=== PATIENT | male | born 1950 | race Asian ===

== ENCOUNTER 2019-07-03 13:50 | Inpatient (IN) | payer OTHER, MEDICARE ==
[~2019-07-03] VITALS: Ht 170.2 cm; Wt 73.5 kg
[~2019-07-03 13:50] MED LIST: CEFAZOLIN 1 GM IVPB PREMIX 50 ML IV ONE
[2019-07-03] MEDS ORDERED: NACL 0.9% 1,000 ML IV ONE (13:54)
[2019-07-03 13:57] VITALS: BP_SYST 152
--- NOTE | 2019-07-03 13:57 | NUR ---
Patient to ER bed 2 to gown for evaluation. Side rails up.
[2019-07-03] MEDS ORDERED: ONDANSETRON HCL 4 MG/2 ML VIAL IVP ONE (14:00)
[2019-07-03] MEDS ORDERED: NS 1000 ML IV.SOLN IV ONE (14:00)
--- NOTE | 2019-07-03 14:05 | NUR ---
ER at bedside examining patient.
--- NOTE | 2019-07-03 14:05 | NUR ---
PT CAME TO ER AFTER NOT HAVING BOWEL MOVEMENT FOR 7 DAYS AND ABDOMINAL PAIN INTERMITTENT. PT RESTING IN BED AO4, NO DISTRESS AT THIS TIME.
[2019-07-03] MEDS ORDERED: NACL 0.9% 2,000 ML IV ONE (14:15)
--- NOTE | 2019-07-03 14:20 | NUR ---
ER at bedside examining patient.
[2019-07-03 14:47] LABS: BASOPHILS % (AUTO) 0.5 % (0.0-2.0); EOSINOPHILS % (AUTO) 0.8 % (0.0-4.0); HEMOGLOBIN 12.1 g/dL (14.0-18.0); LYMPHOCYTES # (AUTO) 1.7 K/uL (1.0-5.5); LYMPHOCYTES % (AUTO) 29.1 % (20.5-51.5); MEAN CORPUSCULAR HEMOGLOBIN 27 pg (27-31); MEAN CORPUSCULAR HGB CONC 32 % (32-36); MEAN CORPUSCULAR VOLUME 84 fL (79.0-98.0); MONOCYTES # (AUTO) 0.6 K/uL (0.0-1.0); MONOCYTES % (AUTO) 10.3 % (1.7-9.3); NEUTROPHILS # (AUTO) 3.5 K/uL (1.8-7.7); NEUTROPHILS % (AUTO) 59.3 % (40.0-70.0); PLATELET COUNT (AUTO) 440 K/uL (130-430); RED BLOOD CELL COUNT(AUTO) 4.51 MIL/uL (4.2-6.2); RED CELL DISTRIBUTION WIDTH 13.7 % (9.0-15.0)
[2019-07-03 14:51] LABS: CALCIUM 8.4 mg/dL (8.4-11.0); CREATININE 0.91 mg/dL (0.55-1.30); POTASSIUM 3.9 mmol/L (3.5-5.1)
[2019-07-03 14:53] LABS: INR 0.9 (0.80-1.20); PROTHROMBIN TIME 9.3 SECS (9.5-12.5)
[2019-07-03 15:06] LABS: ALBUMIN 3.6 g/dL (3.4-4.8); FREE T4 (FREE THYROXINE) 1.2 ng/dl (0.8-1.5); THYROID STIMULATING HORMONE 1.44 uIu/mL (0.36-3.74); TOTAL BILIRUBIN 0.3 mg/dL (0.0-1.0)
--- NOTE | 2019-07-03 15:56 | NUR ---
Orders received from Dr. France, entered by RN. Called for bed assignment, spoke with JOSÉ MIGUEL Viveros.
--- NOTE | 2019-07-03 15:58 | NUR ---
Patient will be admitted to care of DR CARTER. Admitted to MED SURG unit. Will go to room 130B. Belongings list completed. Complete and up to date summary report printed. SBAR report to be given at bedside with opportunity for questions.
--- NOTE | 2019-07-03 16:00 | NUR ---
UNABLE TO COMPLETE MED REC AT THIS TIME
[2019-07-03 16:20] VITALS: BP_SYST 161
--- NOTE | 2019-07-03 16:21 | NUR ---
Admission Note Received patient from ER with diagnosis of Acute Ileus. Initial Plan of Care discussed-patient verbalized understanding. Family at bedside. Oriented to room, call light, pain management and safety.
[2019-07-03 16:54] VITALS: BP_SYST 161
[2019-07-03] MEDS: KCL 20 mEq in D5/0.45NS 1000mL 1,000 ML IV SCH (18:19)
[2019-07-03 20:00] VITALS: BP_SYST 147
[2019-07-03] MEDS: METOPROLOL TARTRATE 25 MG TABLET PO SCH (23:04)
[2019-07-03] MEDS: metroNIDAZOLE 500 mg/NS 100 ML IV SCH (23:15)
[2019-07-03] MEDS ORDERED: metroNIDAZOLE 500 mg/NS 100 ML IV ONE (23:25)
--- NOTE | 2019-07-04 00:32 | NUR ---
CONSULTATION PAGED/CALLED Reason for Consultation: ACUTE ILIUS Person Who was Notified: SIMON Consulting Physician: Spot Man Specialty: Ordering Physician:
[2019-07-04 04:00] VITALS: BP_SYST 143
[2019-07-04] MEDS: KCL 20 mEq in D5/0.45NS 1000mL 1,000 ML IV SCH (05:27)
--- NOTE | 2019-07-04 05:53 | NUR ---
Patient in bed. no complaint of pain or discomfort. Will continue to monitor.
[2019-07-04] MEDS: metroNIDAZOLE 500 mg/NS 100 ML IV SCH ×2 (06:11→14:14)
[2019-07-04] MEDS ORDERED: metroNIDAZOLE 500 mg/NS 100 ML IV ONE (06:14)
[2019-07-04 07:07] LABS: BASOPHILS % (AUTO) 0.5 % (0.0-2.0); HEMATOCRIT 33.8 % (36-54); HEMOGLOBIN 10.9 g/dL (14.0-18.0); LYMPHOCYTES # (AUTO) 1.3 K/uL (1.0-5.5); LYMPHOCYTES % (AUTO) 26.8 % (20.5-51.5); MEAN CORPUSCULAR HEMOGLOBIN 27 pg (27-31); MEAN CORPUSCULAR HGB CONC 32 % (32-36); MEAN CORPUSCULAR VOLUME 84 fL (79.0-98.0); MONOCYTES # (AUTO) 0.6 K/uL (0.0-1.0); MONOCYTES % (AUTO) 12.7 % (1.7-9.3); NEUTROPHILS # (AUTO) 2.8 K/uL (1.8-7.7); PLATELET COUNT (AUTO) 368 K/uL (130-430); RED BLOOD CELL COUNT(AUTO) 4.04 MIL/uL (4.2-6.2); RED CELL DISTRIBUTION WIDTH 13.9 % (9.0-15.0); WHITE BLOOD COUNT (AUTO) 4.8 K/uL (4.8-10.8)
--- NOTE | 2019-07-04 07:15 | NUR ---
Received report and patient. In no acute distress. Sleeping. Denies pain. Side rails x 3 up, call light with in reach. Breathing even and unlabored.
[2019-07-04 07:20] LABS: CALCIUM 7.9 mg/dL (8.4-11.0); CREATININE 0.82 mg/dL (0.55-1.30); POTASSIUM 3.9 mmol/L (3.5-5.1)
--- NOTE | 2019-07-04 07:45 | NUR ---
Made MD France aware regarding today's morning troponin at 0.141, no new orders.
[2019-07-04 08:00] VITALS: BP_SYST 131
[2019-07-04] MEDS: ASPIRIN 81 MG TAB.CHEW PO SCH (08:52)
[2019-07-04] MEDS: METOPROLOL TARTRATE 25 MG TABLET PO SCH (08:53)
[2019-07-04] MEDS: ENOXAPARIN SODIUM 40 MG/0.4 ML SYRINGE SUBCUT SCH (08:55)
[2019-07-04 12:54] VITALS: BP_SYST 143
[2019-07-04] MEDS ORDERED: GASTROGRAFIN 120 ML ONE (14:48)
--- NOTE | 2019-07-04 15:30 | NUR ---
Patient left for radiology procedure via wheel chair.
[2019-07-04 16:45] VITALS: BP_SYST 135
--- NOTE | 2019-07-04 17:13 | NUR ---
Patient arrived back from radiology at 1710, tolerated procedure well.
[2019-07-04 20:10] VITALS: BP_SYST 137
[2019-07-05 00:03] VITALS: BP_SYST 124
[2019-07-05] MEDS: metroNIDAZOLE 500 mg/NS 100 ML IV SCH ×3 (00:48→20:25)
[2019-07-05] MEDS: METOPROLOL TARTRATE 25 MG TABLET PO SCH ×3 (00:50→20:24)
[2019-07-05] MEDS: KCL 20 mEq in D5/0.45NS 1000mL 1,000 ML IV SCH ×2 (00:54→08:00)
[2019-07-05] MEDS: ENOXAPARIN SODIUM 40 MG/0.4 ML SYRINGE SUBCUT SCH (09:00)
[2019-07-05] MEDS: ASPIRIN 81 MG TAB.CHEW PO SCH (09:00)
[2019-07-05 11:05] LABS: POTASSIUM 3.7 mmol/L (3.5-5.1)
[2019-07-05 11:06] LABS: CALCIUM 8.2 mg/dL (8.4-11.0); CREATININE 0.95 mg/dL (0.55-1.30)
[2019-07-05 11:14] LABS: RED BLOOD CELL COUNT(AUTO) 4.14 MIL/uL (4.2-6.2); WHITE BLOOD COUNT (AUTO) 5.9 K/uL (4.8-10.8)
[2019-07-05 11:15] LABS: BASOPHILS % (AUTO) 0.5 % (0.0-2.0); EOSINOPHILS # (AUTO) 0.1 K/uL (0.0-0.4); EOSINOPHILS % (AUTO) 1.1 % (0.0-4.0); HEMOGLOBIN 11.2 g/dL (14.0-18.0); LYMPHOCYTES # (AUTO) 1.3 K/uL (1.0-5.5); LYMPHOCYTES % (AUTO) 21.5 % (20.5-51.5); MEAN CORPUSCULAR HEMOGLOBIN 27 pg (27-31); MEAN CORPUSCULAR HGB CONC 32 % (32-36); MEAN CORPUSCULAR VOLUME 85 fL (79.0-98.0); MONOCYTES # (AUTO) 0.6 K/uL (0.0-1.0); MONOCYTES % (AUTO) 10.9 % (1.7-9.3); NEUTROPHILS # (AUTO) 3.9 K/uL (1.8-7.7); PLATELET COUNT (AUTO) 394 K/uL (130-430); RED CELL DISTRIBUTION WIDTH 13.8 % (9.0-15.0)
--- NOTE | 2019-07-05 12:06 | NUR ---
PAGED PAGED SADIA GILLILAND AT [phone] SPOKE WITH RADHA.
[2019-07-05 12:25] VITALS: BP_SYST 130
[2019-07-05 16:34] VITALS: BP_SYST 136
[2019-07-05] MEDS ORDERED: BISACODYL 5 MG TABLET.DR (DULCOLAX) PO ONE (17:00)
[2019-07-05] MEDS ORDERED: GOLYTELY / COLYTE SOLUTION 4 LITERS PO ONE (18:00)
[2019-07-05 20:00] VITALS: BP_SYST 121
--- NOTE | 2019-07-05 20:00 | NUR ---
recieved report @ start of shift,a/o/x/4, respirations even and unlabored, room air,abulates freely about room with steady gait,tolerated clear liquid diet well, consumed golytly for colonoscopy in am, tolerated well, D5 1/2NS +20meg K+ infusing @ 75 ml/hr in right wrist #24G, denies pain @ this time, SR'S up X'S 2, call light within reach, bed in low position, tolerated IVPB Flagyl with no adverse reactions noted, will continue to monitor for s/s of distress.
--- NOTE | 2019-07-06 | NUR ---
resting quietly in bed with eyes closed, easily aroused, denies pain, NPO for colonoscopy, in no acute distress, will continue to monitor for s/s of distress.
[2019-07-06 00:18] VITALS: BP_SYST 151
[2019-07-06] MEDS: KCL 20 mEq in D5/0.45NS 1000mL 1,000 ML IV SCH ×2 (01:27→14:06)
--- NOTE | 2019-07-06 04:00 | NUR ---
remains npo for colonoscopy this am, consent to be signed, patient up and down going to restroom, cooperative and in good spirits, will continue to monitor.
[2019-07-06 04:01] VITALS: BP_SYST 128
[2019-07-06] MEDS: metroNIDAZOLE 500 mg/NS 100 ML IV SCH ×3 (05:34→21:32)
--- NOTE | 2019-07-06 06:18 | NUR ---
consent signed and witnessed for colonoscopy today
[2019-07-06 06:30] LABS: INR 1.1 (0.80-1.20); PROTHROMBIN TIME 10.7 SECS (9.5-12.5)
--- NOTE | 2019-07-06 07:33 | NUR ---
INITIAL NOTE PT RESTING IN BED, NO ACUTE DISTRESS NOTED, BREATHING EVEN AND UNLABORED. IVF INFUSING WELL. PT NPO SINCE MIDNIGHT. CALL LIGHT WITHIN REACH, BED IN LOW AND LOCKED POSITION. PT EDUCATED ON SAFETY AND PURPOSE OF BED ALARM. PT VERBALIZED UNDERSTANDING. PT REFUSING BED ALARM AT THIS TIME.
[2019-07-06 08:00] VITALS: BP_SYST 134
[2019-07-06] MEDS: ENOXAPARIN SODIUM 40 MG/0.4 ML SYRINGE SUBCUT SCH (08:35)
[2019-07-06] MEDS: ASPIRIN 81 MG TAB.CHEW PO SCH (08:35)
[2019-07-06] MEDS: METOPROLOL TARTRATE 25 MG TABLET PO SCH ×2 (08:36→21:00)
--- NOTE | 2019-07-06 09:33 | NUR ---
RN ROUNDS PT RESTING IN BED, NO ACUTE DISTRESS NOTED, BREATHING EVEN AND UNLABORED.
--- NOTE | 2019-07-06 11:33 | NUR ---
RN ROUNDS PT AWAKE, SPEAKING WITH FAMILY AT BEDSIDE. DENIES ANY PAIN OR DISCOMFORT, WILL CONTINUE TO MONITOR.
[2019-07-06] MEDS ORDERED: SIMETHICONE 40 MG/0.6 ML ML ONE (11:41)
[2019-07-06] MEDS ORDERED: MIDAZOLAM HCL 5 MG/5 ML VIAL ONE (11:41)
[2019-07-06 12:00] VITALS: BP_SYST 138
[2019-07-06] MEDS: fentaNYL CITRATE/PF 100 MCG/2 ML AMP ONE ×2 (12:12→12:15)
[2019-07-06] MEDS: MIDAZOLAM HCL 5 MG/5 ML VIAL ONE ×2 (12:12→12:15)
--- NOTE | 2019-07-06 13:30 | NUR ---
LEFT FOR COLONOSCOPY PT DENIES ANY PAIN OR DISCOMFORT. ESCORTED BY GI NURSES.
--- NOTE | 2019-07-06 15:06 | NUR ---
DC Planning: Per dr. France, planning to dc pt home if colonoscopy is negative. Addendum: 07/06/19 at 1508 by Gregorio Velez RN >> The pt will have surgical consultation dt colon mass.
--- NOTE | 2019-07-06 15:30 | NUR ---
RN ROUNDS PT TOLERATED CLEAR LIQUID DIET WELL. PT DENIES ANY PAIN OR DISCOMFORT. WILL CONTINUE TO MONITOR.
[2019-07-06 16:00] VITALS: BP_SYST 144
--- NOTE | 2019-07-06 16:21 | NUR ---
CONSULTATION: REASON FOR CONSULT: COLON MASS CONSULTING PHYSICIAN: ALAN ESTRADA MD ORDERED BY:ELENA SPOKE WITH NAOMY [phone]
--- NOTE | 2019-07-06 17:30 | NUR ---
DR. NATALIE MARTINES AT BEDSIDE SPEAKING WITH PATIENT AND EXAMINING AT BEDSIDE.
--- NOTE | 2019-07-06 18:33 | NUR ---
CLOSING NOTE PT AWAKE, SPEAKING ON PERSONAL CELL PHONE. NO ACUTE DISTRESS NOTED. IVF INFUSING WELL. CALL LIGHT WITHIN REACH, BED IN LOW AND LOCKED POSITION. EDUCATED PT ON USE AND SAFETY OF BED ALARM, PT VERBALIZED UNDERSTANDING. PT REFUSING BED ALARM. ALL NEEDS MET AT THIS TIME. WILL CONTINUE TO MONITOR UNTIL PT CARE IS ENDORSED TO PROOF OPERATOR RN.
--- NOTE | 2019-07-06 19:47 | NUR ---
Initial note: Received report from isaac RN. Patient is awake, sitting in chair at bedside. No acute distress. Tolerating room air. IV site to is patent and benign, IV fluids infusing well. Call light is with patient. Safety and fall precautions in place. Will continue with plan of care.
[2019-07-06 20:00] VITALS: BP_SYST 144
--- NOTE | 2019-07-06 21:31 | NUR ---
Ambulating: Patient seen ambulating in hallway independently with steady gait. Tolerating room air well. IV site patent and benign. Safety, fall precautions in place. Will continue monitoring.
--- NOTE | 2019-07-07 00:22 | NUR ---
Rounds: Patient is sleeping. No acute distress. Tolerating room air. Even and unlabored breathing. IV fluids infusing well. Call light with patient. Will continue to monitor.
[2019-07-07 00:30] VITALS: BP_SYST 132
--- NOTE | 2019-07-07 01:50 | NUR ---
NOTE PATIENT IS SLEEPING, STABLE, NO SIGNS OF RESPIRATORY DISTRESS. CALL LIGHT IS WITHIN REACH. BED AND THE LOWEST LEVEL. Addendum: 07/08/19 at 0342 by Ashley Galvez RN NOTE INTENDED FOR DIFFERENT TIME.
--- NOTE | 2019-07-07 03:13 | NUR ---
Rounds: Patient is resting in bed comfortably. No acute distress. Even and unlabored breathing on room air. IV site patent and benign, IV fluids infusing well. Call light is with patient. Will continue to monitor.
[2019-07-07] MEDS: KCL 20 mEq in D5/0.45NS 1000mL 1,000 ML IV SCH ×2 (05:00→17:57)
[2019-07-07] MEDS: metroNIDAZOLE 500 mg/NS 100 ML IV SCH ×3 (05:00→22:34)
--- NOTE | 2019-07-07 05:07 | NUR ---
Rounds: Patient is sleeping in bed, no acute distress. Even, unlabored respirations on room air. Call light with patient. Will continue to monitor.
--- NOTE | 2019-07-07 06:47 | NUR ---
Closing note: Patient is sleeping in bed, no acute distress. Tolerating room air. IV fluids infusing well, no infiltration at IV site. All needs met. Safety, fall precautions observed. Hourly rounding performed throughout shift. Will endorse care to dayshift RN.
--- NOTE | 2019-07-07 07:30 | NUR ---
INITIAL NOTE PT AWAKE, SITTING UP IN BED. PT DENIES ANY PAIN OR DISCOMFORT. IVF INFUSING WELL. CALL LIGHT WITHIN REACH, BED IN LOW AND LOCKED POSITION. EDUCATED PT ON SAFETY AND USE OF BED ALARM, PT VERBALIZED UNDERSTANDING. PT REFUSING BED ALARM AT THIS TIME.
[2019-07-07 08:00] VITALS: BP_SYST 146
[2019-07-07] MEDS: ASPIRIN 81 MG TAB.CHEW PO SCH (09:01)
[2019-07-07] MEDS: METOPROLOL TARTRATE 25 MG TABLET PO SCH ×2 (09:01→20:29)
[2019-07-07] MEDS: ENOXAPARIN SODIUM 40 MG/0.4 ML SYRINGE SUBCUT SCH (09:06)
--- NOTE | 2019-07-07 09:30 | NUR ---
RN ROUNDS PT SITTING UP IN BED, AT BEDSIDE. PT DENIES ANY PAIN OR DISCOMFORT AT THIS TIME.
--- NOTE | 2019-07-07 11:30 | NUR ---
RN ROUNDS PT SITTING IN BEDSIDE CHAIR, PT USING PERSONAL LAPTOP. NO CHANGE IN ASSESSMENT. VSS. WILL CONTINUE TO MONITOR.
[2019-07-07 12:00] VITALS: BP_SYST 131
--- NOTE | 2019-07-07 13:30 | NUR ---
RN ROUNDS PT SITTING IN BEDSIDE CHAIR. NO CHANGE IN ASSESSMENT.
--- NOTE | 2019-07-07 15:22 | NUR ---
DR. NATALIE MARTINES EXAMINING PT AT BEDSIDE. MD TO SWITCH DIET TO CLEAR LIQUIDS, KEEP PT NPO AFTER 6AM TOMORROW. POSSIBLE SURGERY TO BE SCHEDULED AT 1PM. VERIFIED WITH READ BACK.
--- NOTE | 2019-07-07 15:45 | NUR ---
CONSENT SIGNED ADMINISTERED SCHEDULED MEDICATIONS. CONSENT SIGNED FOR SURGERY TOMORROW. EDUCATED PT ON CHG BATH. PT VERBALIZED UNDERSTANDING. LEFT CHB WIPES AT BEDSIDE WITH FRESH GOWN. EDUCATED PT ON DRINKING SALINE LAXATIVE. PT VERBALIZED UNDERSTANDING.
[2019-07-07 16:00] VITALS: BP_SYST 130
[2019-07-07] MEDS: metroNIDAZOLE 500 MG TABLET PO SCH ×3 (17:57→22:34)
[2019-07-07] MEDS: NEOMYCIN SULFATE 500 MG TABLET PO SCH ×3 (17:58→22:35)
[2019-07-07] MEDS ORDERED: MAGNESIUM CITRATE 300 ML ORAL SOLUTION PO ONE (18:00)
--- NOTE | 2019-07-07 18:48 | NUR ---
CLOSING NOTE PT SITTING UP IN BED EATING DINNER. PT AWARE THAT HE WILL BE NPO TOMORROW AFTER 6AM. AT BEDSIDE. IVF INFUSING WELL. CALL LIGHT WITHIN REACH, BED IN LOW AND LOCKED POSITION. EDUCATED PT ON SAFETY AND USE OF BED ALARM, PT VERBALIZED UNDERSTANDING. PT REFUSING BED ALARM AT THIS TIME. ALL NEEDS MET THROUGHOUT SHIFT. WILL CONTINUE TO MONITOR UNTIL PT CARE IS ENDORSED TO FAMILY AND MARRIAGE COUNSELLOR RN.
[2019-07-07 19:45] VITALS: BP_SYST 144
--- NOTE | 2019-07-07 19:50 | NUR ---
INITIAL NOTE AT INITIAL ASSESSMENT, PATIENT IS RESTING IN BED, STABLE, NO SIGNS OF RESPIRATORY DISTRESS. PATIENT VERBALIZES NO PAIN AT THIS TIME. PLAN OF CARE FOR THE EVENING IS COMMUNICATED WITH THE PATIENT. PATIENT SUCCESSFULLY DEMONSTRATES CORRECT USAGE OF CALL LIGHT AT THIS TIME. BED IS LOCKED, AND AT THE LOWEST LEVEL. PATIENT IS REFUSING BED ALARM AT THIS TIME DESPITE EDUCATIONAL EFFORTS. FALL AND SAFETY PRECAUTIONS WILL BE IN PLACE THROUGHOUT THE SHIFT.
--- NOTE | 2019-07-07 21:30 | NUR ---
DR. CARTER ROUNDS DR. CARTER IS A BEDSIDE AT THIS TIME TALKING TO THE PATIENT
--- NOTE | 2019-07-07 21:50 | NUR ---
NOTE SCHEDULED MEDICATIONS ARE GIVEN AT THIS TIME. PATIENT IS RESTING IN BED, STABLE, NO SIGNS OF RESPIRATORY DISTRESS. CALL LIGHT WITHIN REACH. BED IS LOCKED AND AT THE LOWEST LEVEL. Addendum: 07/08/19 at 0340 by Ashley Galvez RN PATIENT HAS FINISHED MAG CITRATE, PATIENT TOLERATED WELL.
--- NOTE | 2019-07-07 23:50 | NUR ---
NOTE PATIENT IS SLEEPING, STABLE, NO SIGNS OF RESPIRATORY DISTRESS. CALL LIGHT IS WITHIN REACH. BED AND THE LOWEST LEVEL.
[2019-07-08] VITALS: BP_SYST 126
--- NOTE | 2019-07-08 | NUR ---
CHG BATH CHG BATH GIVEN AT THIS TIME PER MD REQUEST
--- NOTE | 2019-07-08 01:50 | NUR ---
NOTE PATIENT IS SLEEPING, STABLE, NO SIGNS OF RESPIRATORY DISTRESS. CALL LIGHT IS WITHIN REACH. BED AND THE LOWEST LEVEL.
--- NOTE | 2019-07-08 03:40 | NUR ---
NOTE PATIENT IS SLEEPING, STABLE, NO SIGNS OF RESPIRATORY DISTRESS. CALL LIGHT IS WITHIN REACH. BED AND THE LOWEST LEVEL.
--- NOTE | 2019-07-08 05:40 | NUR ---
NOTE PATIENT IS RESTING IN BED, STABLE, NO SIGNS OF RESPIRATORY DISTRESS. CALL LIGHT IS WITHIN REACH. BED AND THE LOWEST LEVEL.
[2019-07-08] MEDS: metroNIDAZOLE 500 mg/NS 100 ML IV SCH ×3 (05:56→23:28)
[2019-07-08] MEDS: KCL 20 mEq in D5/0.45NS 1000mL 1,000 ML IV SCH ×2 (05:57→19:30)
--- NOTE | 2019-07-08 06:30 | NUR ---
CLOSING NOTE PATIENT HAD NO COMPLAINTS OF ABDOMINAL PAIN THROUGHOUT THE NIGHT. HE IS READY AND VERBALIZES UNDERSTANDING OF HIS AM PROCEDURE SCHEDULED. HE IS STABLE, RESTING IN BED, CALL LIGHT IS WITHIN REACH. BED IS LOCKED, ALARMED, AND AT THE LOWEST LEVEL. FALL, AND SAFETY PRECAUTIONS HAVE BEEN IN PLACE THROUGHOUT THE SHIFT. WILL CONTINUE TO MONITOR UNTIL SHIFT REPORT IS GIVEN AT BEDSIDE TO AM NURSE.
[2019-07-08 06:52] LABS: BASOPHILS % (AUTO) 0.5 % (0.0-2.0); EOSINOPHILS % (AUTO) 0.8 % (0.0-4.0); HEMATOCRIT 32.7 % (36-54); HEMOGLOBIN 10.5 g/dL (14.0-18.0); LYMPHOCYTES # (AUTO) 1.8 K/uL (1.0-5.5); LYMPHOCYTES % (AUTO) 29.3 % (20.5-51.5); MEAN CORPUSCULAR HEMOGLOBIN 27 pg (27-31); MEAN CORPUSCULAR HGB CONC 32 % (32-36); MEAN CORPUSCULAR VOLUME 84 fL (79.0-98.0); MONOCYTES # (AUTO) 0.8 K/uL (0.0-1.0); MONOCYTES % (AUTO) 12.8 % (1.7-9.3); NEUTROPHILS # (AUTO) 3.5 K/uL (1.8-7.7); NEUTROPHILS % (AUTO) 56.6 % (40.0-70.0); PLATELET COUNT (AUTO) 351 K/uL (130-430); RED BLOOD CELL COUNT(AUTO) 3.91 MIL/uL (4.2-6.2); RED CELL DISTRIBUTION WIDTH 13.9 % (9.0-15.0); WHITE BLOOD COUNT (AUTO) 6.2 K/uL (4.8-10.8)
[2019-07-08 07:15] LABS: CALCIUM 7.9 mg/dL (8.4-11.0); CREATININE 0.85 mg/dL (0.55-1.30); POTASSIUM 4.1 mmol/L (3.5-5.1)
--- NOTE | 2019-07-08 07:36 | NUR ---
ATTENDING MD DR CARTER WAS PAGED DIRECTLY, RE: CRITICAL TROP LEVEL.
--- NOTE | 2019-07-08 07:40 | NUR ---
OPENING NOTES: RECEIVED PATIENT FROM GOLF BALL WINDER NURSE. PATIENT IS AWAKE AND ALERT x4 LAYING DOWN IN BED. NO SIGNS OF DISTRESS OR SHORTNESS OF BREATH NOTED. IV SITE IS PATENT WITH NO SIGNS OF INFILTRATION NOTED. PATIENT IS TOLERATING OXYGEN AT ROOM AIR. PATIENT IN STABLE CONDITION. SAFETY, FALL AND ASPIRATION PRECAUTIONS ARE IN PLACE. BED LOCKED IN LOWEST POSITION WITH CALL LIGHT IN REACH. WILL CONTINUE TO MONITOR PATIENT FOR ANY CHANGES.
[2019-07-08] MEDS: ENOXAPARIN SODIUM 40 MG/0.4 ML SYRINGE SUBCUT SCH (07:54)
--- NOTE | 2019-07-08 07:54 | NUR ---
Spoke to Dr. ESTRADA /surgeon hold dose of Lovenox today for surgery.
[2019-07-08 08:17] VITALS: BP_SYST 132
[2019-07-08] MEDS: ASPIRIN 81 MG TAB.CHEW PO SCH (08:21)
[2019-07-08] MEDS: METOPROLOL TARTRATE 25 MG TABLET PO SCH ×2 (08:22→23:11)
[2019-07-08 09:09] LABS: BILIRUBIN,URINE NEGATIVE (NEGATIVE); BLOOD, URINE NEGATIVE (NEGATIVE); CLARITY/URINE CLEAR (CLEAR); COLOR,URINE YELLOW (YELLOW); GLUCOSE,URINE NEGATIVE (NEGATIVE); KETONES,URINE NEGATIVE (NEGATIVE); LEUKOCYTE ESTERASE ,URINE TRACE (NEGATIVE); NITRITE, URINE POSITIVE (NEGATIVE); PH,URINE 5.5 (5.0-8.0); PROTEIN URINE NEGATIVE (NEGATIVE); UROBILINOGEN,URINE 0.2 (0.2-1.0)
[2019-07-08 09:14] LABS: BACTERIA,URINE FEW /HPF (None Seen); RBC,URINE 0-3 /HPF (0-3); WBC,URINE 0-3 /HPF (0-3)
--- NOTE | 2019-07-08 10:15 | NUR ---
RN ROUNDS: PATIENT IS AWAKE AND ALERT x4 SITTING IN A CHAIR AT BEDSIDE. NO SIGNS OF DISTRESS OR SHORTNESS OF BREATH NOTED. PATIENT DENIES ANY PAIN AT THE MOMENT. PATIENT IN STABLE CONDITION. WILL CONTINUE TO MONITOR PATIENT FOR ANY CHANGES.
[2019-07-08 11:35] VITALS: BP_SYST 123
--- NOTE | 2019-07-08 12:09 | NUR ---
RN ROUNDS: PATIENT IS AWAKE AND ALERT x4 LAYING DOWN IN BED. NO SIGNS OF DISTRESS OR SHORTNESS OF BREATH NOTED. PATIENT IN STABLE CONDITION. WILL CONTINUE TO MONITOR PATIENT FOR ANY CHANGES.
--- NOTE | 2019-07-08 14:25 | NUR ---
RN ROUNDS: PATIENT IS IN SURGERY. WILL AWAIT PATIENT'S RETURN TO THE FLOOR.
[2019-07-08] MEDS ORDERED: BUPIVACAINE LIPOSOME/PF 266 MG/20 ML VIAL INFIL ONE (14:29)
[2019-07-08] MEDS ORDERED: LR 1,000 ML IV SCH (15:43)
[2019-07-08] MEDS ORDERED: HYDROmorphone 1 MG INJ. 1 MG/ML AMPUL IVP PRN ×2 (15:45)
[2019-07-08] MEDS ORDERED: METOCLOPRAMIDE HCL 10 MG/2 ML VIAL IVP PRN (15:45)
[2019-07-08] MEDS ORDERED: ePHEDrine sulfate 50 MG/ML VIAL IVP PRN (15:45)
[2019-07-08] MEDS ORDERED: ONDANSETRON HCL 4 MG/2 ML VIAL IVP PRN (15:45)
[2019-07-08] MEDS ORDERED: hydrALAZINE HCL 20 MG/ML VIAL IVP PRN (15:45)
--- NOTE | 2019-07-08 16:42 | NUR ---
RN ROUNDS: PATIENT IS STILL IN OR. AWAITING PATIENT'S ARRIVAL TO THE FLOOR.
[2019-07-08] MEDS ORDERED: MORPHINE 4 MG/ML INJ. SYRINGE IVP PRN (17:00)
[2019-07-08] MEDS ORDERED: MORPHINE 4 MG/ML INJ. SYRINGE ONE (17:06)
[2019-07-08 17:18] VITALS: BP_SYST 123
--- NOTE | 2019-07-08 17:45 | NUR ---
RN ROUNDS: PATIENT WAS BROUGHT BACK FROM OR. PATIENT IS AWAKE AND ALERT x4 LAYING DOWN IN BED. FAMILY AT BEDSIDE. IV SITE IS PATENT WITH NO SIGNS OF INFILTRATION NOTED. VITAL SIGNS ARE STABLE BP: 143/93, RESPIRATIONS: 18, PULSE: 79, OXYGEN: 96%, AND PAIN IS 5/10. PATIENT IN STABLE CONDITION. WILL CONTINUE TO MONITOR PATIENT FOR ANY CHANGES.
--- NOTE | 2019-07-08 18:46 | NUR ---
CLOSING NOTES: PATIENT IS ASLEEP LAYING DOWN IN BED. FAMILY AT BEDSIDE. PATIENT STATES HIS PAIN IS 5/10 RIGHT NOW. WILL ENDORSE PAIN MEDICATION TO DEEP WELL CONTRACTOR NURSE WHEN ITS DUE. NO SIGNS OF DISTRESS OR SHORTNESS OF BREATH NOTED. IV SITE IS PATENT WITH NO SIGNS OF INFILTRATION NOTED. PATIENT IS TOLERATING OXYGEN ON 3 L NASAL CANNULA. PATIENT IN STABLE CONDITION. SAFETY, FALL, ASPIRATION AND CONTACT PRECAUTIONS REMAINED IN PLACE THROUGHOUT THE SHIFT. BED LOCKED IN LOWEST POSITION WITH CALL LIGHT IN REACH. WILL ENDORSE PATIENT CARE TO ONCOMING DEEP WELL CONTRACTOR NURSE.
[2019-07-08] MEDS: ACETAMINOPHEN 500 MG TABLET PO SCH ×2 (21:00→23:07)
[2019-07-08] MEDS: KETOROLAC TROMETHAMINE 15 MG VIAL IVP SCH ×2 (22:00→23:06)
[2019-07-08] MEDS: GABAPENTIN 300 MG CAPSULE PO SCH (23:07)
[2019-07-09 01:42] VITALS: BP_SYST 112
[2019-07-09] MEDS: KETOROLAC TROMETHAMINE 15 MG VIAL IVP SCH ×3 (06:50→23:02)
[2019-07-09] MEDS: metroNIDAZOLE 500 mg/NS 100 ML IV SCH ×3 (06:51→21:51)
[2019-07-09] MEDS: ACETAMINOPHEN 500 MG TABLET PO SCH ×4 (06:57→21:51)
[2019-07-09 08:00] VITALS: BP_SYST 126
--- NOTE | 2019-07-09 08:00 | NUR ---
A/OX4,LAYING DOWN IN BED. STATES HE IS 2-3/10 PAIN ON THE MID ABDOMEN. IV ON THE LEFT FA, #22, INTACT AND PATENT. PATIENT IS TOLERATING OXYGEN AT ROOM AIR. BED LOCKED AT THE LOWEST POSITION WITH CALL LIGHT IN REACH. WILL CONTINUE TO MONITOR PATIENT FOR ANY CHANGES.
--- NOTE | 2019-07-09 09:00 | NUR ---
PATIENT IS SEEN BY DR. ESTRADA. POC IS DISCUSSED
[2019-07-09 09:47] LABS: BASOPHILS % (AUTO) 0.3 % (0.0-2.0); EOSINOPHILS % (AUTO) 0.1 % (0.0-4.0); HEMOGLOBIN 11.1 g/dL (14.0-18.0); LYMPHOCYTES # (AUTO) 1.2 K/uL (1.0-5.5); MEAN CORPUSCULAR HEMOGLOBIN 27 pg (27-31); MEAN CORPUSCULAR HGB CONC 32 % (32-36); MEAN CORPUSCULAR VOLUME 84 fL (79.0-98.0); MONOCYTES # (AUTO) 0.5 K/uL (0.0-1.0); MONOCYTES % (AUTO) 5.1 % (1.7-9.3); NEUTROPHILS # (AUTO) 8.8 K/uL (1.8-7.7); NEUTROPHILS % (AUTO) 83.5 % (40.0-70.0); PLATELET COUNT (AUTO) 382 K/uL (130-430); RED BLOOD CELL COUNT(AUTO) 4.16 MIL/uL (4.2-6.2); RED CELL DISTRIBUTION WIDTH 13.9 % (9.0-15.0); WHITE BLOOD COUNT (AUTO) 10.5 K/uL (4.8-10.8)
[2019-07-09 10:09] LABS: CREATININE 1.24 mg/dL (0.55-1.30); POTASSIUM 3.8 mmol/L (3.5-5.1)
[2019-07-09] MEDS: ASPIRIN 81 MG TAB.CHEW PO SCH (10:30)
[2019-07-09] MEDS: METOPROLOL TARTRATE 25 MG TABLET PO SCH ×2 (10:30→21:00)
[2019-07-09] MEDS: GABAPENTIN 300 MG CAPSULE PO SCH ×3 (10:31→21:51)
[2019-07-09] MEDS: ENOXAPARIN SODIUM 40 MG/0.4 ML SYRINGE SUBCUT SCH (10:31)
[2019-07-09] MEDS: KCL 20 mEq in D5/0.45NS 1000mL 1,000 ML IV SCH (10:35)
--- NOTE | 2019-07-09 11:00 | NUR ---
DR. ZAPATA IS HERE TO SEE PATIENT.
[2019-07-09 12:00] VITALS: BP_SYST 104
--- NOTE | 2019-07-09 12:17 | NUR ---
CARDIOLOGY CONSULT SEEN BY DR MARTÍNEZ MADE AWARE OF CONSULT.
--- NOTE | 2019-07-09 12:23 | NUR ---
Nutrition Update Maykel Scale 18 noted. Pt admitted for acute ileus Diet: Full Liquid BMI: 25.4 kg/m2 RD to follow per nutrition care standards.
--- NOTE | 2019-07-09 13:00 | NUR ---
PATIENT TOLERATED LUNCH WITHOUT DISTRESS.
--- NOTE | 2019-07-09 15:30 | NUR ---
PATIENT IS RESTING WITH FAMILY AT BEDSIDE.
[2019-07-09 16:00] VITALS: BP_SYST 107
--- NOTE | 2019-07-09 17:48 | NUR ---
PATIENT IS HAVING DINNER AT BEDSIDE. TOLERATING WITHOUT DISTRESS.
--- NOTE | 2019-07-09 18:24 | NUR ---
Dietitian Recommendations *Continue full liquid diet *Each tray comes standard with Ensure Enlive which provides 325kcal and 20gPro per serving *When/if medically feasible to advance diet, consider GI Soft Please see Nutrition Assessment for further details. LT, RD
--- NOTE | 2019-07-09 19:35 | NUR ---
Opening notes Received report. Patient is resting in bed, no signs of distress noted. Playing games with daughter. Breathing even and unlabored. IV patent and intact, infusing fluids. Patient has little pain to abdomen. No needs at this time. Call light with the patient. Safety precautions in place.
[2019-07-09 20:00] VITALS: BP_SYST 103
--- NOTE | 2019-07-09 21:30 | NUR ---
Medications given. Educated the patient and daughter the action and side effects of medications. Patient tolerated well and verbalized understanding. No needs at this time. Call light with the patient. Safety precautions in place.
--- NOTE | 2019-07-09 23:30 | NUR ---
Sleeping Patient sleeping. VSS. BP 92/51 HR 62. Patient asymptomatic, no complaints of discomfort, lightheadedness, or dizziness. Provided patient with blankets. No other needs. Son at bedside. Call light with the patient. Safety precautions in place.
[2019-07-10] VITALS: BP_SYST 92
--- NOTE | 2019-07-10 | NUR ---
received pt in bed with family at bedside ,v/s and assessment done ,n/s bolous given ,iv ns@1oocc hr infusing well,medication given for pain francisco javier well pm care given made comfortable no further distress noted.
--- NOTE | 2019-07-10 02:00 | NUR ---
Sleeping Patient is sleeping and snoring. No signs of distress noted. Breathing even and unlabored. IVF infusing well. Call light with the patient. Safety precautions in place. Son at bedside.
--- NOTE | 2019-07-10 04:34 | NUR ---
Sleeping No signs of distress noted. Breathing even and unlabored. IVF infusing well. No needs. Call light with the patient. Safety precautions in place
[2019-07-10] MEDS: KCL 20 mEq in D5/0.45NS 1000mL 1,000 ML IV SCH (06:12)
[2019-07-10] MEDS: metroNIDAZOLE 500 mg/NS 100 ML IV SCH (06:12)
[2019-07-10] MEDS: KETOROLAC TROMETHAMINE 15 MG VIAL IVP SCH (06:13)
--- NOTE | 2019-07-10 06:50 | NUR ---
Closing notes Patient is resting in bed. No signs of distress noted. Breathing even and unlabored. IV patent and intact, infusing fluids. No complaints of pain. Patient stated he passed gas, 4-5 times throughout the night. Diet advanced. Dietary called and left voicemail for tray order. All needs met throughout the shift. Call light with the patient. Safety precautions in place. Will endorse care to day shift RN.
[2019-07-10] MEDS: ACETAMINOPHEN 500 MG TABLET PO SCH ×2 (06:56→11:49)
[2019-07-10 08:00] VITALS: BP_SYST 122
--- NOTE | 2019-07-10 08:00 | NUR ---
RN OPENING NOTE PATIENT IS RESTING IN BED, ALERT ORIENTED X4, DENIES PAIN OR DISCOMFORT. , SON BY BEDSIDE, PATIENT WAS ASSESSED, VITAL SIGNS ARE STABLE. IVF IS RUNNING PRESCRIBED, BED AT LOW POSITION AND CALL LIGHT WITHIN REACH, WILL CONTINUE TO MONITOR.
[2019-07-10 09:37] LABS: BASOPHILS % (AUTO) 0.1 % (0.0-2.0); EOSINOPHILS % (AUTO) 0.2 % (0.0-4.0); HEMATOCRIT 34.4 % (36-54); LYMPHOCYTES # (AUTO) 1.2 K/uL (1.0-5.5); LYMPHOCYTES % (AUTO) 11.9 % (20.5-51.5); MEAN CORPUSCULAR HEMOGLOBIN 27 pg (27-31); MEAN CORPUSCULAR HGB CONC 32 % (32-36); MEAN CORPUSCULAR VOLUME 84 fL (79.0-98.0); MONOCYTES # (AUTO) 0.8 K/uL (0.0-1.0); MONOCYTES % (AUTO) 8.1 % (1.7-9.3); NEUTROPHILS # (AUTO) 7.9 K/uL (1.8-7.7); NEUTROPHILS % (AUTO) 79.7 % (40.0-70.0); PLATELET COUNT (AUTO) 387 K/uL (130-430); RED BLOOD CELL COUNT(AUTO) 4.07 MIL/uL (4.2-6.2); RED CELL DISTRIBUTION WIDTH 14.4 % (9.0-15.0)
[2019-07-10 09:46] LABS: CALCIUM 8.1 mg/dL (8.4-11.0); CREATININE 1.13 mg/dL (0.55-1.30); POTASSIUM 4.3 mmol/L (3.5-5.1)
[2019-07-10] MEDS: GABAPENTIN 300 MG CAPSULE PO SCH ×3 (09:51→20:36)
[2019-07-10] MEDS: ASPIRIN 81 MG TAB.CHEW PO SCH (09:51)
[2019-07-10] MEDS: METOPROLOL TARTRATE 25 MG TABLET PO SCH ×2 (09:52→20:39)
[2019-07-10] MEDS: ENOXAPARIN SODIUM 40 MG/0.4 ML SYRINGE SUBCUT SCH (09:53)
--- NOTE | 2019-07-10 10:00 | NUR ---
RN NOTE PATIENT DENIES PAIN OR DISCOMFORT. PATIENT WAS GIVEN HIS MEDICATIONS. DR. ESTRADA INCREASED THE RATE FOR IVF. WILL INFORM DR. HARMON ABOUT THE PATIENT'S LABS .UA WAS SENT TO THE LABS FOR ANALYSIS, WILL CONTINUE TO MONITOR PATIENT ATE HIS BREAKFAST, NO NAUSEA OR VOMITING, WILL CONTINUE TO MONITOR.
[2019-07-10 10:42] LABS: BILIRUBIN,URINE 1+ (NEGATIVE); BLOOD, URINE NEGATIVE (NEGATIVE); CLARITY/URINE CLEAR (CLEAR); COLOR,URINE YELLOW (YELLOW); GLUCOSE,URINE NEGATIVE (NEGATIVE); KETONES,URINE 1+ (NEGATIVE); LEUKOCYTE ESTERASE ,URINE TRACE (NEGATIVE); NITRITE, URINE POSITIVE (NEGATIVE); PH,URINE 6.5 (5.0-8.0); PROTEIN URINE TRACE (NEGATIVE)
[2019-07-10 10:48] LABS: RBC,URINE 0-3 /HPF (0-3); WBC,URINE 0-3 /HPF (0-3)
[2019-07-10 10:49] LABS: BACTERIA,URINE MODERATE /HPF (None Seen); MUCUS,URINE 1+ /LPF (None Seen)
--- NOTE | 2019-07-10 11:31 | NUR ---
RN NOTE PATIENT IS RESTING IN BED, BY THE BED SIDE, BLADDER SCAN WAS DONE ONCE PATIENT VOIDED ONE HOUR AGO, ZERO RESIDUE WAS FOUND, RESCAN AFTER ONE HOUR SHOWED 60 ML OR URINE. URINE WAS SENT TO THE LAB, RESULT CAME BACK, WITH OTHER LABS. DR. ZHANG WAS PAGED AWAITING HIS RETURN OF CALL TO SEE IF HE HAS A NEW ORDERS FOR THE PATIENT. WILL CONTINUE TO MONITOR.
[2019-07-10 12:00] VITALS: BP_SYST 125
--- NOTE | 2019-07-10 14:00 | NUR ---
RN NOTE PATIENT IS RESTING IN BED, PATIENT WAS GIVEN HIS MEDICATION, IS BY THE BEDSIDE, PATIENT WAS EDUCATED ABOUT HIS DISEASE PROCESS. IVF IS RUNNING PRESCRIBED. PATIENT VOIDED 220 OF URINE. CARBON BRUSHER ASSEMBLER THAN THE DARKER URINE HE VOIDED BEFORE. PLEASE REFER TO CHARTING I&O FOR TIMED AND AMOUNT OF VOIDING, WILL CONTINUE TO MONITOR.
[2019-07-10] MEDS ORDERED: BUPIVACAINE LIPOSOME/PF 266 MG/20 ML VIAL INFIL ONE (16:03)
[2019-07-10] MEDS ORDERED: SEVOFLURANE 15 MIN GAS INH ONE (16:03)
[2019-07-10] MEDS ORDERED: MIDAZOLAM HCL 2 MG/2 ML VIAL (VERSED) IVP ONE (16:03)
[2019-07-10] MEDS ORDERED: METOCLOPRAMIDE HCL 10 MG/2 ML VIAL IVP ONE (16:03)
[2019-07-10] MEDS ORDERED: NS IRRIG SOLN 1000 ML IR ONE (16:03)
[2019-07-10] MEDS ORDERED: DESFLURANE 15 MIN GAS INH ONE (16:03)
[2019-07-10] MEDS ORDERED: fentaNYL CITRATE/PF 100 MCG/2 ML AMP IVP ONE (16:03)
[2019-07-10] MEDS ORDERED: LR 1,000 ML IV.SOLN IV ONE (16:03)
[2019-07-10] MEDS ORDERED: ONDANSETRON HCL 4 MG/2 ML VIAL IVP ONE (16:03)
[2019-07-10] MEDS ORDERED: NS 1000 ML IV.SOLN IV ONE (16:03)
[2019-07-10] MEDS ORDERED: ROCURONIUM BROMIDE 10 MG/ML (ZEMURON) IV ONE (16:03)
[2019-07-10] MEDS ORDERED: PROPOFOL 200MG/ 20ML VIAL (DIPRIVAN) IV ONE (16:03)
[2019-07-10 16:30] VITALS: BP_SYST 121
--- NOTE | 2019-07-10 19:20 | NUR ---
RN CLOSING NOTE DR. ZHANG WAS PAGED AND AN ORDER FOR NS BOLUS FOR THE PATIENT WAS INITIATED. PATIENT IS ALERT ORIENTED DENIES PAIN OR DISCOMFORT. DR. HARMON WAS TOLD ABOUT THE TOTAL URINE OF 400 ML/DAY, WELL 5 LOOSE BM WITH POSSIBLE DARK BLOOD IN THEM. WILL ENDORSE TO NEXT SHIFT.
--- NOTE | 2019-07-10 19:20 | NUR ---
PAGED: DR ZAPATA PAGED PER PRIMARY RN CAT'S REQUEST TO GET ORDERS .
[2019-07-10] MEDS ORDERED: NS 500 ML IV ONE (19:30)
--- NOTE | 2019-07-10 20:00 | NUR ---
received pt in bed v/s and assessment done ,iv bolus given ,iv ns @100 cc/hr infusing well ,medicated for pain ,family at bedside,pm care given made comfortable.
[2019-07-10] MEDS: NACL 0.9% 1,000 ML IV SCH (20:38)
[2019-07-10] MEDS: HYDROcodone/ACETAMIN 5-325 MG TAB (NORCO/ VICODIN) PO PRN (20:45)
[2019-07-10 23:46] VITALS: BP_SYST 131
[2019-07-11] VITALS: BP_SYST 120
[2019-07-11] MEDS: HYDROcodone/ACETAMIN 5-325 MG TAB (NORCO/ VICODIN) PO PRN (05:33)
[2019-07-11] MEDS: NACL 0.9% 1,000 ML IV SCH (05:33)
[2019-07-11 08:00] VITALS: BP_SYST 125
--- NOTE | 2019-07-11 08:00 | NUR ---
received awake and in no c/o discomfort vss abd with lap sites and dermabond intact.up amb in room and passing gas.takes diet well continue to monitor
[2019-07-11 08:23] VITALS: BP_SYST 140
[2019-07-11 09:39] VITALS: BP_SYST 125
--- NOTE | 2019-07-11 10:00 | NUR ---
for d/c home and instructions given and understood and prescription given.iv sl dcd.ride from family here and amb to front door and belongings also taken.
--- NOTE | 2019-07-14 11:44 | NUR ---
Discharge Follow Up Phone Call FUSE ASSEMBLER phoned patient, . Patient stated he was doing okay. He filled his prescriptions and stated he is taking his medications as directed. He has attended a follow up appointment with his PCP, Dr Lien Russell. He has signed paperwork to have his medical records released to Dr Russell. He requested [facility] phone Dr Russell's office to assure she has the pathology results in particular. He would like them faxed as soon as possible. He provided Dr Russell' number, . Phoned. They are anxiously awaiting the medical record. She provided the fax number (same as phone number). Faxed face sheet with two pathology results. Patient stated he has made his follow up appointment with surgeon, Dr Summers. No other questions.
--- NOTE | 2019-07-15 15:03 | NUR ---
Diet Aide: EAP SPECIALIST received msg. from former pt. re needing a copy of his CT Scan. EAP SPECIALIST called pt. back and asked pt. to come in and ask to speak to someone in radiology. They can make a copy for him. Pt. said he will do so and thanked EAP SPECIALIST.
== END 2019-07-11 10:05 | disposition home or self-care (01) | DRG 329 ==
LOC: SED 13:50 → SMU 15:54
PROVIDERS: ADMIT Family Medicine; ATTEND Family Medicine
PROC: 0DBK8ZX Excision of Ascending Colon, Via Natural or Artificial Opening Endoscopic, Diagnostic (ICD-10-PCS; principal; 2019-07-06 13:00)
PROC: 0DTF4ZZ Resection of Right Large Intestine, Percutaneous Endoscopic Approach (ICD-10-PCS; 2019-07-08)
DX: D49.0 Neoplasm of unspecified behavior of digestive system (principal); I21.9 Acute myocardial infarction, unspecified; K56.7 Ileus, unspecified; I24.9 Acute ischemic heart disease, unspecified; K56.600 Partial intestinal obstruction, unspecified as to cause; K57.30 Diverticulosis of large intestine without perforation or abscess without bleeding; I10 Essential (primary) hypertension; K52.9 Noninfective gastroenteritis and colitis, unspecified; Z80.0 Family history of malignant neoplasm of digestive organs
CPT/HCPCS: 36415; 45380; 71045; 74018; 74250-TC; 80048; 80053; 80061; 81000-TC; 82150-TC; 82378; 82550-TC; 82962; 83605; 83690-TC; 84439; 84443-TC; 84484; 85025; 85610-TC; 85730-TC; 86886; 86900; 86901; 87040-TC; 87081; 88305; 88307; 88309; 93005; 93306; 94010; 96360; 99285; C1727; C9290; J0690; J1650; J1885; J2250; J2270; J2405; J2704; J2765; J3010; J3465; J3490; J7030; J7040; J7120; Q9963